=== PATIENT | male | born 1995 | race Caucasian/White ===

== ENCOUNTER 2017-05-10 16:26 | Emergency (ER) | payer OTHER ==
--- NOTE | 2017-05-10 17:04 | ER Document Report ---
ED Medical Screen (RME) - General Chief Complaint: Suicidal Ideation Stated Complaint: PSYCH EVAL Time Seen by Provider: 05/10/17 16:58 Notes: 21-year-old male patient with depressive symptoms since 2014 without treatment. Getting worse last 3 weeks. He did self-inflicted lacerations over his left forearm recently, that did not help, he was considering slicing his wrists in the bathtub when a friend intervened and brought him to the emergency room for treatment. I have greeted and performed a rapid initial assessment of this patient. A comprehensive ED assessment and evaluation of the patient, analysis of test results and completion of the medical decision making process will be conducted by additional ED providers. TRAVEL OUTSIDE OF THE [place] IN LAST 30 DAYS: No - Related Data Allergies/Adverse Reactions: No Known Allergies Allergy (Verified 05/10/17 16:29) Past Medical History - Social History Chew tobacco use (# tins/day): Yes Frequency of alcohol use: Occasional Drug Abuse: None Renal/ Medical History: Denies: Hx Peritoneal Dialysis Psychiatric Medical History: Reports: Hx Depression Physical Exam - Vital signs Vitals: Temp Pulse Resp BP Pulse Ox 97.7 F 74 18 137/82 H 100 05/10/17 16:41 05/10/17 16:41 05/10/17 16:41 05/10/17 16:41 05/10/17 16:41 Course - Vital Signs Vital signs: Temp Pulse Resp BP Pulse Ox 97.7 F 74 18 137/82 H 100 05/10/17 16:41 05/10/17 16:42 05/10/17 16:42 05/10/17 16:41 05/10/17 16:41
[2017-05-10 17:33] LABS: ABSOLUTE BASOPHILS # (AUTO) 0.1 10^3/uL (0.0-0.2); ABSOLUTE EOSINOPHILS # (AUTO) 0.2 10^3/uL (0.0-0.6); ABSOLUTE LYMPHOCYTES (AUTO) 2.4 10^3/uL (0.5-4.7); ABSOLUTE MONOCYTES (AUTO) 0.5 10^3/uL (0.1-1.4); ABSOLUTE NEUT (AUTO) 8.5 10^3/uL (1.7-8.2); BASOPHILS % (AUTO) 0.5 % (0-2); EOSINOPHILS % (AUTO) 1.4 % (0-6); HEMATOCRIT 46.3 % (37.9-51.0); LYMPHOCYTES % (AUTO) 20.6 % (13-45); MEAN CORPUSCULAR HEMOGLOBIN 31.3 pg (27.0-33.4); MEAN CORPUSCULAR HGB CONC 34.5 g/dL (32.0-36.0); MEAN CORPUSCULAR VOLUME 91 fl (80-97); MONOCYTES % (AUTO) 4.6 % (3-13); PLATELET COUNT 321 10^3/uL (150-450); RED BLOOD COUNT 5.11 10^6/uL (4.35-5.55); RED CELL DISTRIBUTION WIDTH 12.8 % (11.5-14.0); SEGMENTED NEUTROPHILS % (AUTO) 72.9 % (42-78); TOTAL CELLS COUNTED % (AUTO) 100 %; WHITE BLOOD COUNT 11.6 10^3/uL (4.0-10.5)
[2017-05-10 17:44] LABS: APPEARANCE,URINE SLIGHTLY-CLOUDY; BILIRUBIN,URINE NEGATIVE (NEGATIVE); COLOR,URINE YELLOW; GLUCOSE, URINE NEGATIVE (NEGATIVE); KETONES,URINE 20 mg/dL (NEGATIVE); LEUKOCYTE ESTERASE,URINE NEGATIVE (NEGATIVE); NITRITE,URINE NEGATIVE (NEGATIVE); PROTEIN,URINE NEGATIVE (NEGATIVE); URINE SPECIFIC GRAVITY 1.028; UROBILINOGEN,URINE NEGATIVE mg/dL (<2.0)
[2017-05-10 17:52] LABS: ALANINE AMINOTRANSFERASE 32 U/L (21-72); ALBUMIN 5.1 g/dL (3.5-5.0); ALKALINE PHOSPHATASE 66 U/L (38-126); ANION GAP 11 (5-19); ASPARTATE AMINO TRANSFERASE 23 U/L (17-59); BILIRUBIN,DIRECT 0.2 mg/dL (0.0-0.4); BILIRUBIN,TOTAL 0.6 mg/dL (0.2-1.3); BLOOD UREA NITROGEN 16 mg/dL (7-20); CARBON DIOXIDE 26 mmol/L (22-30); CHLORIDE 102 mmol/L (98-107); GLUCOSE 90 mg/dL (75-110); SODIUM 139.1 mmol/L (137-145); TOTAL PROTEIN 7.9 g/dL (6.3-8.2)
[2017-05-10 17:53] LABS: ACETAMINOPHEN < 10 ug/mL (10-30); ALCOHOL < 10 mg/dL (NONE DETECTED); SALICYLATE < 1.0 mg/dL (2.0-20.0)
[2017-05-10 17:54] LABS: URINE AMPHETAMINES SCREEN NEGATIVE; URINE BARBITURATES SCREEN NEGATIVE; URINE BENZODIAZEPINES SCREEN NEGATIVE; URINE COCAINE SCREEN NEGATIVE; URINE MARIJUANA (THC) SCREEN NEGATIVE; URINE METHADONE SCREEN NEGATIVE; URINE PHENCYCLIDINE SCREEN NEGATIVE
--- NOTE | 2017-05-10 21:36 | ER Document Report ---
ED General - General Chief Complaint: Suicidal Ideation Stated Complaint: PSYCH EVAL Time Seen by Provider: 05/10/17 16:58 Notes: Patient is a 21-year-old male without past psychiatric history who presents with suicidal ideation. Patient reports that he has had increased suicidal thoughts over the last 3 weeks and has made multiple attempts to harm himself including cutting his wrists today. He came to the emergency department with encouragement of a friend. He reports in the past he did jump off a second story balcony in a suicide attempt while in the [employer]. He states that he has never been formally diagnosed with any mental health disorder otherwise and up until the past 3 weeks have been doing very well. He is uncertain of what triggered his current suicidal ideation. Nothing seems to improve or worsen his symptoms. He does admit to ongoing suicidality at time of my assessment. He denies any ongoing medical complaints. TRAVEL OUTSIDE OF THE [place] IN LAST 30 DAYS: No - Related Data Allergies/Adverse Reactions: No Known Allergies Allergy (Verified 05/10/17 16:29) Past Medical History - General Information source: Patient - Social History Smoking Status: Current Every Day Smoker Chew tobacco use (# tins/day): Yes Frequency of alcohol use: Occasional Drug Abuse: None Lives with: Alone Family History: Reviewed & Not Pertinent Patient has suicidal ideation: Yes Patient has homicidal ideation: No Renal/ Medical History: Denies: Hx Peritoneal Dialysis Psychiatric Medical History: Reports: Hx Depression Review of Systems - Review of Systems Notes: Constitutional: Negative for fever. HENT: Negative for sore throat. Eyes: Negative for visual changes. Cardiovascular: Negative for chest pain. Respiratory: Negative for shortness of breath. Gastrointestinal: Negative for abdominal pain, vomiting or diarrhea. Genitourinary: Negative for dysuria. Musculoskeletal: Negative for back pain. Skin: Negative for rash. Neurological: Negative for headaches, weakness or numbness. 10 point ROS negative except as marked above and in HPI. Physical Exam - Vital signs Vitals: Temp Pulse Resp BP Pulse Ox 97.7 F 74 18 137/82 H 100 05/10/17 16:41 05/10/17 16:41 05/10/17 16:41 05/10/17 16:41 05/10/17 16:41 Interpretation: Normal Notes: PHYSICAL EXAMINATION: GENERAL: Well-appearing, well-nourished and in no acute distress. HEAD: Atraumatic, normocephalic. EYES: Pupils equal round and reactive to light, extraocular movements intact, sclera anicteric, conjunctiva are normal. ENT: nares patent, oropharynx clear without exudates. Moist mucous membranes. NECK: Normal range of motion, supple without lymphadenopathy LUNGS: Breath sounds clear to auscultation bilaterally and equal. No wheezes rales or rhonchi. HEART: Regular rate and rhythm without murmurs ABDOMEN: Soft, nontender, normoactive bowel sounds. No guarding, no rebound. No masses appreciated. EXTREMITIES: Normal range of motion, no pitting or edema. No cyanosis. NEUROLOGICAL: No focal neurological deficits. Moves all extremities spontaneously and on command. PSYCH: Normal mood, normal affect. SKIN: Warm, Dry, normal turgor, no rashes or lesions noted. Course - Re-evaluation Re-evalutation: 05/10/17 21:35 Patient presents with acute suicidal ideation with a plan to either cut his wrists or drowning himself. He reports multiple times over the past several weeks. Patient admits to a history of suicide attempt in the past when he was in the [employer] but states he is otherwise been doing well until recently. No obvious trigger for his suicidal ideation. Patient feels he is unsafe at home, high risk for completion of suicide. Therefore IVC has been placed,. Medical screening exam and labs are unremarkable. He denies any additional acute medical complaints. He is cleared for evaluation by psychiatry in the morning. - Vital Signs Vital signs: Temp Pulse Resp BP Pulse Ox 98.3 F 91 16 124/61 98 05/10/17 19:46 05/10/17 19:46 05/10/17 19:46 05/10/17 19:46 05/10/17 19:46 - Laboratory Result Diagrams: 05/10/17 17:10 05/10/17 17:10 Laboratory results interpreted by me: 05/10/17 05/10/17 05/10/17 17:10 17:10 17:10 WBC 11.6 H Absolute Neutrophils 8.5 H Calcium 11.0 H Albumin 5.1 H Urine Ketones 20 H Salicylates < 1.0 L Acetaminophen < 10 L - EKG Interpretation by Me Additional EKG results interpreted by me: 05/11/17 04:09 Sinus rhythm. Rate 63. No ST elevations or depressions. QTC is 402. Discharge - Discharge Clinical Impression: Suicidal ideation Condition: Good Disposition: PSYCH HOSP/UNIT
[2017-05-11] MEDS ORDERED: OLANZAPINE 2.5 MG TABLET PO ONE (09:21)
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
--- NOTE | 2017-05-11 12:08 | ER Document Report ---
Doctor's Note Notes: 05/11/17 12:07 Rounds: Chart reviewed and patient interviewed. Vital signs are all normal. Patient does not express any suicidal thoughts at this time. Labs were essentially all normal. Patient appears to be medically stable for transfer or discharge. Kalyani Wilkins MD
[2017-05-11 13:01] VITALS: BP 121/65
--- NOTE | 2017-05-12 12:00 | EKG REPORT ---
SEVERITY:- ABNORMAL ECG - SINUS RHYTHM INCOMPLETE RIGHT BUNDLE BRANCH BLOCK : Confirmed by: Sandrita Mullins MD 12-May-2017 11:59:45
== END 2017-05-11 12:50 | disposition home or self-care (01) ==
LOC: ER 16:26
DX: R45.851 Suicidal ideations (principal); F31.9 Bipolar disorder, unspecified; F17.200 Nicotine dependence, unspecified, uncomplicated
CPT/HCPCS: 93005; 99285; 36415; 80307 ×4; 85025; 80053; 81001; 93010; J3490

== ENCOUNTER 2018-08-18 09:39 | Emergency (ER) | payer OTHER ==
[2018-08-18] MEDS ORDERED: DIPH/PERTUSS(ACELL)/TETANUS VAC/PF 0.5 ML SYR (>=10YO) IM ONE (11:04)
--- NOTE | 2018-08-18 11:08 | ER Document Report ---
HPI - HPI Time Seen by Provider: 08/18/18 10:19 Pain Level: 3 Notes: Patient is a 22-year-old male no significant past medical history presents emergency department complaining of dog bite to his left wrist and left side of the neck last evening about 14 hours ago. Patient states that he has been drinking and saw a dog but would like a husky and he went to pet it when it bit him. Patient states that it otherwise was not acting strange at that time. He does not know if the dog belongs to anybody or not. He is unsure of his last tetanus. Patient states that he does have some pain to his left wrist. Patient states the dog did clamp down on his wrist, but did not clamp down on the neck. Patient states that when he tried by his neck he pulled away because the abrasions. He is otherwise eating and drinking without difficulty. He is urinating normally. Denies drug allergies. No other concerns or complaints. Denies any headache, fever, head injury, changes in vision/speech/mentation/hearing, URI, sore throat, chest pain, palpitations, syncope, cough, shortness of breath, wheeze, dyspnea, abdominal pain, nausea/vomiting/diarrhea, urinary retention, dysuria, hematuria, loss of control of bowel or bladder, numbness/tingling, muscle paralysis/weakness, or rash. - ROS Systems Reviewed and Negative: Yes All other systems reviewed and negative Past Medical History - Social History Smoking Status: Current Every Day Smoker Frequency of alcohol use: Social Drug Abuse: Marijuana Family History: Reviewed & Not Pertinent Patient has suicidal ideation: No Patient has homicidal ideation: No Renal/ Medical History: Denies: Hx Peritoneal Dialysis Psychiatric Medical History: Reports: Hx Depression Vertical Provider Document - CONSTITUTIONAL Agree With Documented VS: Yes Notes: PHYSICAL EXAMINATION: GENERAL: Well-appearing, well-nourished and in no acute distress. HEAD: Atraumatic, normocephalic. EYES: Pupils equal round and reactive to light, extraocular movements intact, sclera anicteric, conjunctiva are normal. ENT: Nares patent and without discharge. oropharynx clear without exudates. No tonsilar hypertrophy or erythema. Moist mucous membranes. NECK: Normal range of motion, supple without lymphadenopathy. No midline tenderness. No ligature bond or ecchymosis/hematoma noted. LUNGS: Breath sounds clear to auscultation bilaterally and equal. No wheezes rales or rhonchi. HEART: Regular rate and rhythm without murmurs, rubs, gallops. ABDOMEN: Soft, nontender, nondistended abdomen. No guarding, no rebound. No masses appreciated. Normal bowel sounds present. No CVA tenderness bilaterally. Musculoskeletal: Left wrist: + puncture bond noted without signicant laceration. + mild swelling and tenderness to the dorsal wrist. FROM to passive/active. Strength 5+/5. N/V intact distal. Extremities: No cyanosis, clubbing, or edema b/l. Peripheral pulses 2+. Capillary refill less than 3 seconds. NEUROLOGICAL: Cranial nerves grossly intact. Normal speech, normal gait. Normal sensory, motor exams PSYCH: Normal mood, normal affect. SKIN: puncture abrasions to the posterior left neck and left wrist. No purulence. - INFECTION CONTROL TRAVEL OUTSIDE OF THE [place] IN LAST 30 DAYS: No Course - Re-evaluation Re-evalutation: 08/18/18 11:55 Patient is an afebrile, well-hydrated, 22-year-old male who presents the emergency department with dog bites to the neck into the left wrist. Vitals are acceptable without segment tachycardia, tachypnea, or hypoxia. PE is otherwise unremarkable. Patient is nontoxic-appearing and is able to tolerate p.o. without difficultly. X-ray of the left wrist was unremarkable for acute pathology. Wounds were thoroughly irrigated and cleansed. Tetanus was updated today. No laceration repair warranted at this time. No further labs or imaging warranted. I did thoroughly review the risk and benefits as well as the statistics of rabies vaccination. I reviewed that he could potentially contract rabies and if he does there is a very high rate of fatality. I also reviewed the potential side effects and cost with the patient. At this time after thorough review, patient does not want the rabies vaccination series started. He states that he will be establishing with the family doctor this week and will reevaluate. Patient aware that the best time to get the rabies vaccination series if he were to get it would be as soon as possible. Low suspicion for any sepsis, meningitis, significant vessel rupture, fracture, retained foreign body at this time. Pt aware condition can change and needs to seek medical attention with acute changes. I will send him home with a prescription for Augmentin. Recheck with your PCM in 2 to 3 days. Return to the ED with any other worsening/concerning symptoms. Patient is in agreement. - Vital Signs Vital signs: Temp Pulse Resp BP Pulse Ox 97.6 F 69 16 153/85 H 100 08/18/18 09:43 08/18/18 09:43 08/18/18 09:43 08/18/18 09:43 08/18/18 09:43 Discharge - Discharge Clinical Impression: Dog bite Qualifiers: Encounter type: initial encounter Qualified Code(s): W54.0XXA - Bitten by dog, initial encounter Condition: Stable Disposition: HOME, SELF-CARE Instructions: Family Physicians / Practices Additional Instructions: Keep the skin clean Wash with soap and water Tylenol/ibuprofen if needed Triple antibiotic ointment daily Take medication as directed Monitor for any worsening symptoms Recheck with your PCM in 2-3 days Consider rabies series. Consider consult with Orthopedics for ongoing/worsening symptoms Return to the ED with any worsening symptoms and/or development of fever, headache, chest pain, palpitations, syncope, shortness of breath, trouble breathing, abdominal pain, n/v/d, abscess, purulent discharge, red streaks, worsening swelling, or other worsening symptoms that are concerning to you. Prescriptions: Amox Tr/Potassium Clavulanate [Augmentin 875-125 Tablet] 1 tab PO BID 10 Days #20 tablet Forms: Elevated Blood Pressure, Smoking Cessation Education Referrals: [facility] [Provider Group] - Follow up as needed
--- NOTE | 2018-08-18 11:42 | RADIOLOGY REPORT (SQ) ---
EXAM DESCRIPTION: WRIST LEFT 3 VIEWS COMPLETED DATE/TIME: 08/18/2018 11:31 am REASON FOR STUDY: dog bite, pain COMPARISON: None. NUMBER OF VIEWS: Three views. TECHNIQUE: AP, lateral, and oblique radiographic images acquired of the left wrist. LIMITATIONS: None. FINDINGS: MINERALIZATION: Normal. BONES: No acute fracture or dislocation. No worrisome bone lesions. Normal alignment. SOFT TISSUES: Soft tissue swelling and subcutaneous emphysematous changes particularly along the vol ar aspect of the distal forearm. No foreign body. OTHER: No other significant finding. IMPRESSION: 1. Marked soft tissue swelling and subcutaneous emphysematous changes distal forearm, m ore so volar aspect. Correlation suggested. 2. No acute osseous findings. TECHNICAL DOCUMENTATION: JOB ID: [id number] [email or web address]- All Rights Reserved Reading location - IP/workstation name: [email or web address]
[2018-08-18 12:10] VITALS: BP 142/88
== END 2018-08-18 12:10 | disposition home or self-care (01) ==
LOC: ER 09:39
DX: S61.552A Open bite of left wrist, initial encounter (principal); S11.95XA Open bite of unspecified part of neck, initial encounter; W54.0XXA Bitten by dog, initial encounter; Y93.89 Activity, other specified; F12.10 Cannabis abuse, uncomplicated; F17.200 Nicotine dependence, unspecified, uncomplicated; Z23 Encounter for immunization
CPT/HCPCS: 90471; 90715; 99283

== ENCOUNTER 2019-12-15 11:04 | Emergency (ER) | payer OTHER ==
[2019-12-15] MEDS ORDERED: ONDANSETRON 4 MG TAB.RAPDIS PO ONE (12:45)
--- NOTE | 2019-12-15 13:19 | ER Document Report ---
ED ENT - General Chief Complaint: Sore Throat Stated Complaint: VOMITING Time Seen by Provider: 12/15/19 12:29 Notes: CHIEF COMPLAINT: Sore throat for 1 day, vomiting since 3 AM HPI: 24-year-old male presenting with sore throat for 1 day, 2 episodes of vomiting that have occurred since 3 AM when he attempts to eat or drink. Denies abdominal pain. Denies fever or cough. He is concerned about COVID. ROS: See HPI - all other systems were reviewed and are otherwise negative Constitutional: no fever Eyes: no drainage, no blurred vision ENT: no runny nose, + sore throat Cardiovascular: no chest pain Resp: no SOB, no cough GI: + vomiting, no diarrhea, no abdominal pain : no dysuria Integumentary: no rash Allergy: no hives Musculoskeletal: no extremity pain or swelling Neurological: no numbness/tingling, no weakness MEDICATIONS: I agree with the patient medications as charted by the RN. ALLERGIES: I agree with the allergies as charted by the RN. PAST MEDICAL HISTORY/PAST SURGICAL HISTORY: Reviewed and agree as charted by RN. SOCIAL HISTORY: Reviewed and agree as charted by RN. FAMILY HISTORY: No significant familial comorbid conditions directly related to patient complaint EXAM: Reviewed vital signs as charted by RN. CONSTITUTIONAL: Alert and oriented and responds appropriately to questions. Well-appearing; well-nourished HEAD: Normocephalic; atraumatic EYES: PERRL; Conjunctivae clear, sclerae non-icteric ENT: normal nose; no rhinorrhea; moist mucous membranes; pharynx without lesions noted, no uvula edema or deviation, no tonsillar hypertrophy, phonation normal NECK: Supple without meningismus; non-tender; no cervical lymphadenopathy, no masses CARD: RRR; no murmurs, no clicks, no rubs, no gallops; symmetric distal pulses RESP: Normal chest excursion without splinting or tachypnea; breath sounds clear and equal bilaterally; no wheezes, no rhonchi, no rales, pulse oximetry 99% on room air not hypoxic ABD/GI: Normal bowel sounds; non-distended; soft, non-tender, no rebound, no guarding; no palpable organomegaly or masses. BACK: The back appears normal and is non-tender to palpation, there is no CVA tenderness EXT: Normal ROM in all joints; non-tender to palpation; no cyanosis, no effusions, no edema SKIN: Normal color for age and race; warm; dry; good turgor; no acute lesions noted NEURO: Moves all extremities equally; Motor and sensory function intact PSYCH: The patient's mood and manner are appropriate. Grooming and personal hygiene are appropriate. MDM: 24-year-old male sore throat, vomiting, concern for COVID, will obtain COVID test, person under investigation for COVID-19, rapid strep negative. TRAVEL OUTSIDE OF THE [place] IN LAST 30 DAYS: No - Related Data Allergies/Adverse Reactions: No Known Allergies Allergy (Verified 12/15/19 11:36) Past Medical History - Social History Smoking Status: Current Every Day Smoker Frequency of alcohol use: None Drug Abuse: Marijuana Family History: Reviewed & Not Pertinent Patient has homicidal ideation: No Renal/ Medical History: Denies: Hx Peritoneal Dialysis Psychiatric Medical History: Reports: Hx Depression Physical Exam - Vital signs Vitals: Temp Pulse Resp BP Pulse Ox 98.4 F 70 16 142/82 H 100 12/15/19 11:18 12/15/19 11:18 12/15/19 11:18 12/15/19 11:18 12/15/19 11:18 Course - Vital Signs Vital signs: Temp Pulse Resp BP Pulse Ox 98.4 F 70 16 142/82 H 100 12/15/19 11:36 12/15/19 11:18 12/15/19 11:18 12/15/19 11:18 12/15/19 11:18 Discharge - Discharge Clinical Impression: Sore throat (viral), Vomiting, Person under investigation for COVID-19 Condition: Stable Disposition: HOME, SELF-CARE Additional Instructions: Rapid strep test was negative. Take Zofran for any nausea or vomiting push fluids at home. You are considered a person under investigation for COVID-19 at this time self quarantine at home until you have a negative test result. Tests are resulting in 2 to 5 days and you should hear from someone at the hospital about your test result Prescriptions: Ondansetron [Zofran Odt 4 mg Tablet] 1 - 2 tab PO Q4H PRN #15 tab.rapdis PRN Reason: For Nausea/Vomiting Referrals: NARENDRA MAY MD [ACTIVE STAFF] - Follow up as needed
[2019-12-15 13:57] VITALS: BP 138/78
== END 2019-12-15 13:55 | disposition home or self-care (01) ==
LOC: ER 11:04
DX: J02.9 Acute pharyngitis, unspecified (principal); R11.10 Vomiting, unspecified; F17.200 Nicotine dependence, unspecified, uncomplicated; Z20.828 Contact with and (suspected) exposure to other viral communicable diseases
CPT/HCPCS: 99283; 87070; 87880; 87635; 87077; S0119; C9803